=== PATIENT | female | born 1935 | race Caucasian/White ===

== ENCOUNTER 2017-06-17 13:40 | Emergency (ER) | payer MEDICARE ==
[~2017-06-17] VITALS: Ht 162.6 cm; Wt 41.0 kg
[~2017-06-17 13:40] MED LIST: ASPI81TA82 PO; LORA0.5T PO; NIFE30TA2 PO
[2017-06-17 13:42] VITALS: BP 163/78; PULSE 90; RESP 16; TEMP 98.2; O2SAT 98
[2017-06-17] MEDS ORDERED: ACETAMINOPHEN/HYDROcodone 325 MG/5 MG TAB PO ONE (14:30)
[2017-06-17] MEDS ORDERED: ONDANSETRON ODT 4 MG TAB PO ONE (14:30)
--- NOTE | 2017-06-17 15:14 | RADRPT ---
EXAM DATE/TIME: 06/17/2017 14:31 [facility] COMPARISON: No previous studies available for comparison. INDICATIONS : Right wrist pain after falling. MEDICAL HISTORY : None. SURGICAL HISTORY : None. ENCOUNTER: Initial ACUITY: 1 day PAIN SCORE: 10/10 LOCATION: Right wrist FINDINGS: There is an impacted fracture distal radius with minimal volar angulation. Ulnar styloid fracture as well. Carpus is intact. CONCLUSION: Collies fracture Lebron Weaver MD FACR on June 17, 2017 at 15:12 Board Certified Radiologist. This report was verified electronically.
[2017-06-17] MEDS ORDERED: SODIUM CHLOR 0.9% 1000 ML INJ 1,000 ML IV ONE (15:15)
[2017-06-17] MEDS ORDERED: PROPOFOL 200 MG/20 ML AMP IV ONE (15:15)
--- NOTE | 2017-06-17 15:15 | RADRPT ---
EXAM DATE/TIME: 06/17/2017 14:33 [facility] COMPARISON: No previous studies available for comparison. INDICATIONS : Right wrist pain after falling MEDICAL HISTORY : None. SURGICAL HISTORY : None. ENCOUNTER: Initial ACUITY: 1 day PAIN SCORE: 10/10 LOCATION: Right wrist FINDINGS: Fracture distal radius is again seen. The proximal radius and ulna are intact. CONCLUSION: Distal radius fracture otherwise negative. Lebron Weaver MD FACR on June 17, 2017 at 15:13 Board Certified Radiologist. This report was verified electronically.
--- NOTE | 2017-06-17 15:16 | PD ---
HPI Chief Complaint: Injury Time Seen by Provider: 14:21 Travel History International Travel<30 days: No Contact w/Intl Traveler<30days: No Traveled to known affect area: No History of Present Illness HPI 82-year-old female experienced a right wrist injury well moving chairs at the [facility] this morning. She was seen at an urgent care center and was referred here. Constant pain and deformity is noted. The pain is worse with palpation. No other injury to report. No numbness tingling weakness. Immobilization with a splint and Eliud bandage was marginally helpful. No other injury to report. PFSH Past Medical History Arthritis: No Anxiety: Yes Cardiovascular Problems: Yes (HTN) High Cholesterol: Yes Diminished Hearing: No Headaches: No Hypertension: Yes Musculoskeletal: Yes Neurologic: No Respiratory: No Seizures: No Menopausal: Yes Past Surgical History Appendectomy: Yes Cholecystectomy: Yes Hysterectomy: Yes Tonsillectomy: Yes Social History Alcohol Use: No Tobacco Use: No Substance Use: No Allergies-Medications (Allergen,Severity, Reaction): Coded Allergies: No Known Allergies (Verified , 06/17/17) Reported Meds & Prescriptions Reported Meds & Active Scripts Active Lortab (Hydrocodone-Acetaminophen) 5-325 Mg Tab 1 Tab PO Q6H PRN Reported Aspir-81 (Aspirin) 81 Mg Tab 81 Mg PO Q 3 DAYS Lorazepam 0.5 Mg Tab 0.5 Mg PO HS Nifedical Xl (Nifedipine) 30 Mg Tab 30 Mg PO DAILY Review of Systems Except as stated in HPI: all other systems reviewed are Neg General / Constitutional: No: Fever Physical Exam Narrative GENERAL: Old female pleasant well-nourished well-developed SKIN: Focused skin assessment warm/dry. HEAD: Atraumatic. Normocephalic. EYES: Pupils equal and round. No scleral icterus. No injection or drainage. ENT: No nasal bleeding or discharge. Mucous membranes pink and moist. NECK: Trachea midline. No JVD. CARDIOVASCULAR: Regular rate and rhythm. No murmur appreciated. RESPIRATORY: No accessory muscle use. Clear to auscultation. Breath sounds equal bilaterally. GASTROINTESTINAL: Abdomen soft, non-tender, nondistended. Hepatic and splenic margins not palpable. MUSCULOSKELETAL: No obvious deformities. No clubbing. No cyanosis. No edema. There is dorsal deformity DRUJ on the right side. 2+ radial artery pulses bilaterally. Handgrip equal bilaterally. NEUROLOGICAL: Awake and alert. No obvious cranial nerve deficits. Motor grossly within normal limits. Normal speech. PSYCHIATRIC: Appropriate mood and affect; insight and judgment normal. Data Data Last Documented VS Vital Signs Date Time Temp Pulse Resp B/P Pulse Ox O2 Delivery O2 Flow Rate FiO2 06/17/17 15:46 99 2.00 06/17/17 15:35 Nasal Cannula 06/17/17 13:42 98.2 90 16 163/78 Vital signs reviewed Orders Wrist, Complete ([id number]) (06/17/17 ) Forearm (2vws) (06/17/17 ) Acetamin-Hydrocod 325-5 Mg (Porter 5-325 (06/17/17 14:30) Ondansetron Odt (Zofran Odt) (06/17/17 14:30) Propofol 200 Mg/20 Ml Inj (Diprivan 200 (06/17/17 15:15) Ecg Monitoring (06/17/17 15:06) Iv Access Insert/Monitor (06/17/17 15:06) Oximetry (06/17/17 15:06) Oxygen Administration (06/17/17 15:06) Sodium Chlor 0.9% 1000 Ml Inj (Ns 1000 M (06/17/17 15:15) Wrist, Limited (Ap&Lat) (06/17/17 15:49) ^ Sling (06/17/17 16:26) MDM Medical Decision Making Medical Screen Exam Complete: Yes Emergency Medical Condition: Yes Differential Diagnosis Fracture, contusion, hematoma Narrative Course Last 24 hours Impressions Wrist X-Ray 06/17/17 0000 Signed Impressions: Service Date/Time: Saturday, June 17, 2017 14:31 - CONCLUSION: Collies fracture Lebron Weaver MD FACR Radius/Ulna X-Ray 06/17/17 0000 Signed Impressions: Service Date/Time: Saturday, June 17, 2017 14:33 - CONCLUSION: Distal radius fracture otherwise negative. Lebron Weaver MD FACR Post-reduction film shows improved alignment. Follow up plans discussed with patient who is agreeable with plan. Procedures Procedure Narrative After the risks and benefits were discussed the following procedure was performed: MODERATE SEDATION: The patient was placed on a energy sales consultant and pulse oximetry. An ambu bag and suction was immediately available at bedside. The patient was monitored by the nurse. Oxygen saturation , heart rate and blood pressure were monitored. Procedural sedation was acheived using propofol. The patient was observed until awake and alert. Procedural Sedation time in attendance was 5 minutes. Closed Reduction Distal Radius Fracture Traction countertraction technique was employed to reduce the distal radius fracture. Diagnosis Primary Impression: Distal radius fracture, right Qualified Code: S52.501A - Closed fracture of distal end of right radius, unspecified fracture morphology, initial encounter Referrals: Cristino Fung MD 3 days Additional Instructions: BE SURE TO CALL DR FUNG'S OFFICE FIRST THING IN THE MORNING TO GET FOLLOW UP APPOINTMENT. PLEASE DO NOT DRIVE AFTER TAKING LORTAB. IF YOUR PAIN WORSENS RETURN TO THE ER. NUMBNESS/TINGLING/WEAKNESS IN THE L ARM SHOULD PROMPT A RETURN VISIT TO THE ER. You have a choice when it comes to health care, and we are glad that you chose [facility]. Hopefully, we have met your expectations on today's visit. You are welcome to return to [facility] at any time, as we are committed to meeting the health care needs of our community. Med/Other Pt SpecificInfo: Prescription(s) given Scripts Hydrocodone-Acetaminophen (Lortab)5-325 Mg Tab1 Tab PO Q6H PRN (PAIN SCALE 6 TO 10) #12 TAB Ref 0 Prov:Kvng Bowens MD 06/17/17 Disposition: 01 DISCHARGE HOME Condition: Stable Kvng Bowens MD Jun 17, 2017 15:16
[2017-06-17 15:35] VITALS: O2SAT 100
[2017-06-17 15:46] VITALS: O2SAT 99
[2017-06-17] MEDS ORDERED: HYDR-3533 PO (16:27)
[2017-06-17 16:36] VITALS: BP 143/67
--- NOTE | 2017-06-17 17:08 | RADRPT ---
EXAM DATE/TIME: 06/17/2017 16:13 [facility] COMPARISON: WRIST RIGHT COMPLETE ([id number]), June 17, 2017, 14:31. INDICATIONS : Post reduction. MEDICAL HISTORY : None. SURGICAL HISTORY : None. ENCOUNTER: Initial ACUITY: 1 day PAIN SCORE: 8/10 LOCATION: Bilateral FINDINGS: There has been closed reduction and casting of the right distal radial fracture with improvement of t he previously noted dorsal angulation. Acute fracture of the ulna styloid process is stable. CONCLUSION: Status post closed reduction of right distal radial fracture with some improvement of dorsal angulati on. Stable distal ulnar styloid process fracture. Shaheed Mcfarlane MD on June 17, 2017 at 16:49 Board Certified Radiologist. This report was verified electronically.
== END 2017-06-17 16:36 | disposition home or self-care (01) ==
LOC: PHED 13:40
DX: S52.531A Colles' fracture of right radius, initial encounter for closed fracture (principal); X58.XXXA Exposure to other specified factors, initial encounter; Y93.89 Activity, other specified; Y92.89 Other specified places as the place of occurrence of the external cause
CPT/HCPCS: 25605; 73090; 73100; 73110; 94770; 96360; 99285; J7030

== ENCOUNTER 2017-06-19 19:30 | Emergency (ER) | payer MEDICARE ==
[~2017-06-19] VITALS: Ht 162.6 cm; Wt 42.5 kg
[~2017-06-19 19:30] MED LIST changes: +HYDR-3533 PO
[2017-06-19 19:55] VITALS: BP 144/75; PULSE 97; RESP 18; TEMP 98.2; O2SAT 97
--- NOTE | 2017-06-19 20:28 | PD ---
HPI Chief Complaint: Musculoskeletal Complaint Time Seen by Provider: 20:05 Travel History International Travel<30 days: No Contact w/Intl Traveler<30days: No Traveled to known affect area: No History of Present Illness HPI 82-year-old female presents to the emergency room for splint recheck. Patient was diagnosed with distal radius fracture 2 days ago and had a sugartong splint placed. States since having the splint placed she has had worsening edema, bruising, and numbness and tingling in her right hand. States the worst edema developed today. Patient denies worsening pain. She has not been able to make a follow-up appointment with Dr. Braswell. [facility] Past Medical History Arthritis: No Anxiety: Yes Cardiovascular Problems: Yes (HTN) High Cholesterol: Yes Diminished Hearing: No Headaches: No Hypertension: Yes Musculoskeletal: Yes Neurologic: No Respiratory: No Seizures: No Menopausal: Yes Past Surgical History Appendectomy: Yes Cholecystectomy: Yes Hysterectomy: Yes Tonsillectomy: Yes Social History Alcohol Use: No Tobacco Use: No Substance Use: No Allergies-Medications (Allergen,Severity, Reaction): Coded Allergies: No Known Allergies (Verified , 06/19/17) Reported Meds & Prescriptions Reported Meds & Active Scripts Active Lortab (Hydrocodone-Acetaminophen) 5-325 Mg Tab 1 Tab PO Q6H PRN Review of Systems Except as stated in HPI: all other systems reviewed are Neg Physical Exam Narrative GENERAL: Well-nourished, well-developed female in no acute distress. Afebrile. Ambulatory. SKIN: Focused skin assessment warm/dry. Extreme ecchymosis over the right wrist and hand. HEAD: Normocephalic. EYES: No scleral icterus. No injection or drainage. NECK: Supple, trachea midline. No JVD or lymphadenopathy. CARDIOVASCULAR: Regular rate and rhythm without murmurs, gallops, or rubs. RESPIRATORY: Breath sounds equal bilaterally. No accessory muscle use. MUSCULOSKELETAL: No cyanosis. Extreme edema of the right hand. 2+ radial pulse. Radial, ulnar, and median nerves intact. Minimal to moderate edema of the distal wrist. Range of motion of the wrist secondary to pain. Full range of motion of the hand. Data Data Last Documented VS Vital Signs Date Time Temp Pulse Resp B/P Pulse Ox O2 Delivery O2 Flow Rate FiO2 06/19/17 19:55 98.2 97 18 144/75 97 Orders Splint Or Brace Apply/Monitor (06/19/17 20:09) [facility] Medical Decision Making Medical Screen Exam Complete: Yes Emergency Medical Condition: Yes Medical Record Reviewed: Yes Differential Diagnosis Splint recheck, fracture, sprain, edema Narrative Course 10-year-old female presents to the emergency room for splint recheck. Patient had sugar tong splint placed 2 days ago after having a distal radial fracture. Reports worsening edema and paresthesias especially today. Physical exam reveals splint is tight around hand with extreme edema of the hand. Splint was removed and wrist was assessed. 2+ radial pulse. Radial, ulnar, and median nerves intact. Distal sensation intact. Less than 2 second capillary refill distally. New splint was applied slightly looser than before. Patient was informed to elevate wrist above heart as much as possible and move fingers to encourage venous blood flow. She will follow up with an orthopedist next week. She understands and agrees to plan. Diagnosis Primary Impression: Distal radius fracture, right Qualified Code: S52.531D - Closed Colles' fracture of right radius with routine healing, subsequent encounter Referrals: Primary Care Physician Patient Instructions: General Instructions, Wrist Fracture in Adults (ED) Additional Instructions: Rest and drink plenty of fluids. Keep wrist above heart to prevent worsening swelling. Apply ice to the affected area for 20 minutes at a time, as needed for pain and swelling. Follow-up with orthopedist. Return to the emergency room for worsening symptoms. Med/Other Pt SpecificInfo: Prescription(s) given Disposition: 01 DISCHARGE HOME Condition: Stable Jazzy Hicks Jun 19, 2017 20:28
== END 2017-06-19 20:36 | disposition home or self-care (01) ==
LOC: PHEFT 19:30
DX: S52.531D Colles' fracture of right radius, subsequent encounter for closed fracture with routine healing (principal); R60.0 Localized edema; R20.0 Anesthesia of skin; R20.2 Paresthesia of skin; I10 Essential (primary) hypertension; E78.00 Pure hypercholesterolemia, unspecified; Z86.59 Personal history of other mental and behavioral disorders; Z87.39 Personal history of other diseases of the musculoskeletal system and connective tissue; X58.XXXD Exposure to other specified factors, subsequent encounter
CPT/HCPCS: 29125

== ENCOUNTER → 2017-07-03 | Day surgery (SDC) | payer MEDICARE ==
[~2017-07-03] VITALS: Ht 167.6 cm; Wt 40.8 kg
[~2017-07-03] MED LIST changes: +*morphine SULFATE 8 MG/ML PERIprocedure ONLY ONE; +ACETAMINOPHEN/HYDROcodone 325 MG/7.5 MG TAB PO PRN; -ASPI81TA82 PO; +BUPIVACAINE/EPINEPHRINE 0.25% 50 ML VIAL ONE; +CHLORHEXIDINE GLUCONATE 2 % 1 PACK (2 CLOTHS) TOPICAL PRN; +CHLORHEXIDINE GLUCONATE 4% SOLN 120 ML BTL TOPICAL SCH; +DEXAMETHASONE SOD PHOS 4 MG/ML VIAL IV ONE; +DO NOT ADM ANY ANTICOAGULANT DRUGS PRN; +GENTAMICIN SULFATE 80 MG/2 ML VIAL ONE; +HYDR-3288 PO; +INSULIN HUMAN REGULAR 1,000 UNITS/10 ML VIAL SQ PRN; +LACTATED RINGER'S 1000 ML IV PRN; +LORA-373 PO; -LORA0.5T PO; +METOPROLOL TARTRATE 25 MG TAB PO PRN; +MIDAZOLAM HCL 2 MG/2 ML VIAL ONE; +MORPHINE SULFATE 4 MG/ML INJ IV PUSH PRN; -NIFE30TA2 PO; +NIFE30TA61 PO; +ONDANSETRON HCL 4 MG/2 ML VIAL IV PUSH ONE; +PHENYLEPH/NS 1000 MCG/10 ML SYR IV ONE; +POVIDONE IODINE 5% (ANTISEPSIS KIT) 4 APPLICATIONS EACH NARE PRN; +PROPOFOL 200 MG/20 ML AMP IV ONE; +SODIUM CHLORID 0.9% 500 ML IV PRN; +VANCOMYCIN 1000 MG/NS 250 ML (for <70 kg) IV SCH; +ceFAZolin 2 GM PREMIX 50 ML IV SCH; +ceFAZolin INJ 1,000 MG VIAL ONE; +ePHEDrine/NS 25 MG/5 ML SYR IV ONE
[2017-07-03 06:10] VITALS: BP 165/90; PULSE 94; RESP 18; TEMP 98.5; O2SAT 98
--- NOTE | 2017-07-03 08:39 | PD.OP ---
cc: Mando Shin MD Operative Report Date of Surgery: Jul 03, 2017 Preoperative Diagnosis: Displaced right distal radius fracture Postoperative Diagnosis: Procedure: Open reduction internal fixation right distal radius Anesthesia: Gen. Surgeon: Mando Shin Director Supply Chain(s): DAXA Swenson PA-C The surgical procedure was assisted by my physician librarian assistant. My P.A. presence was necessary throughout this case for the manipulation and positioning of the surgical extremity. My P.A. was assisting me throughout the duration of this procedure. The skill set of a physician librarian assistant was medically necessary to complete this procedure. During the surgical case the ophthalmic surgical assistant was working at the back table and the physician librarian assistant was directly assisting me. Operation and Findings: Patient was seen and evaluated preoperatively and found to have a displaced intra-articular right distal radius fracture. Informed consent was obtained after detailed discussion of risk and benefits including bleeding, infection, injury to arteries, nerves, and blood vessels, weakness and numbness of hand, and tendon rupture. Informed consent was obtained. Patient received IV antibiotics prior to incision. Timeout procedure was performed. Operative extremity was prepped with alcohol followed by Hibiclens and draped usual sterile fashion. A standard volar approach to the distal radius was utilized. A 3 inch incision was made over the FCR tendon. Tendon sheath was opened. Pronator quadratus was elevated up. The fracture site was now visualized. The fracture did have intra-articular extension. Traction was applied. The articular surface was reduced. Fracture fragments were manipulated to achieve excellent reduction. K wires were used to hold provisional fixation. Fluoroscopy confirmed appropriate alignment of fracture. A ITS variable angle distal radius plate was selected. Plate was provisionally fixed to bone with K wires. 2.7 and 2.4 cortical screws were used to compress plate to bone. Fluoroscopy confirmed appropriate alignment of fracture with well-placed hardware. Multiple 2.4 locking screws were now placed distally. Screws were predrilled and measured for appropriate length. 2 additional screws were placed into the shaft. K wires were removed. Final fluoroscopy revealed excellent of fracture with well- placed hardware. The wound was thoroughly irrigated with sterile saline. Subcutaneous tissue was closed with 3-0 Vicryl and skin was closed with 3-0 nylon. Sterile dressings were applied with Xeroform, 4 x 4, soft roll, and a well padded volar splint. Patient was awakened and transferred to recovery room in stable condition Mando Shin MD Jul 03, 2017 08:39
--- NOTE | 2017-07-03 08:58 | PD.ORT.PN ---
Subjective Subjective Remarks POD 0 s/p ORIF right distal radius stable in PACU Objective Vitals Vital Signs Date Time Temp Pulse Resp B/P Pulse Ox O2 Delivery O2 Flow Rate FiO2 07/03/17 06:10 98.5 94 18 165/90 98 Objective Remarks RUE: +short arm splint. intact. Assessment & Plan Assessment and Plan 1) Right Distal Radius Fx s/p ORIF - POD 0\ -NWB -maintain splint at all times -cleared for discharge -f/u in 2 weeks David Moore Jul 03, 2017 08:58
[2017-07-03 10:56] VITALS: BP 136/75; PULSE 85; RESP 24; TEMP 97.4; O2SAT 94
--- NOTE | 2017-07-03 11:26 | RADRPT ---
EXAM DATE/TIME: 07/03/2017 08:21 [facility] COMPARISON: WRIST RIGHT LIMITED(AP & LAT), June 17, 2017, 16:13. INDICATIONS : Surgical repair of right wrist. MEDICAL HISTORY : None. SURGICAL HISTORY : None. ENCOUNTER: Initial ACUITY: 1 day PAIN SCORE: Non-responsive. LOCATION: Right wrist. FINDINGS: Two view examination of the right wrist demonstrates postsurgical changes following open reduction an d internal fixation of a distal right radial fracture. Fixation plate has been placed across the vola r surface of the distal radius. There is good fracture fragment alignment. Radiocarpal joint is well aligned. CONCLUSION: Satisfactory postoperative appearance of the right wrist following ORIF as described. Percy Daniel MD on July 03, 2017 at 11:23 Board Certified Radiologist. This report was verified electronically.
--- NOTE | 2017-07-03 14:13 | EKG ---
Date Performed: 07/03/2017 Time Performed: 06:09:50 PTAGE: 82 years EKG: Sinus rhythm POSSIBLE RIGHT VENTRICULAR CONDUCTION DELAY BORDERLINE ECG INTERPRETATION BASED ON A DEFAULT AGE OF 40 YEARS PREVIOUS TRACING : 12/07/2009 23.29 Since previous tracing, the slight right ventricular conduction delay is new, otherwise no significant change. DOCTOR: Lan Campbell Interpretating Date/Time 07/03/2017 14:12:44
== END | disposition home or self-care (01) ==
LOC: HSDC 05:33
PROVIDERS: ATTEND Orthopaedic Surgery Orthopaedic Trauma
DX: S52.571A Other intraarticular fracture of lower end of right radius, initial encounter for closed fracture (principal); W01.0XXA Fall on same level from slipping, tripping and stumbling without subsequent striking against object, initial encounter; Y93.01 Activity, walking, marching and hiking; Y92.480 Sidewalk as the place of occurrence of the external cause; I10 Essential (primary) hypertension; M48.06 Spinal stenosis, lumbar region; Z01.810 Encounter for preprocedural cardiovascular examination; Z79.891 Long term (current) use of opiate analgesic; Z79.899 Other long term (current) drug therapy
CPT/HCPCS: 01830; 25608; 73100; 76000; 93005; C1713; J0690; J1100; J1580; J2250; J2270; J2370; J2405; J3010; J3370; J7050; J7120